=== PATIENT | male | born 1980 | race Caucasian/White ===

== ENCOUNTER 2018-08-23 16:35 | Emergency (ER) | payer OTHER ==
[~2018-08-23] VITALS: Ht 182.9 cm; Wt 96.0 kg
[2018-08-23 18:30] VITALS: BP 128/79
== END 2018-08-23 18:39 | disposition home or self-care (01) ==
LOC: ER 16:35
DX: H93.12 Tinnitus, left ear (principal); H91.8X2 Other specified hearing loss, left ear; M19.90 Unspecified osteoarthritis, unspecified site; Z87.891 Personal history of nicotine dependence
CPT/HCPCS: 99283